=== PATIENT | female | born 1980 | race African-American/Black ===

== ENCOUNTER 2017-02-20 16:24 | Emergency (ER) | payer SELFPAY ==
[2017-02-20 16:48] VITALS: BP 116/65
[2017-02-20] MEDS ORDERED: AMOX1TAB61 PO (17:05)
--- NOTE | 2017-02-20 17:05 | PHYS DOC ---
Past Medical History Past Medical History: No Pertinent History Past Surgical History: No Surgical History Alcohol Use: Rarely Drug Use: None Adult General Chief Complaint Chief Complaint: SORE THROAT HPI HPI Patient is a 36 year old female presents emergency department stating that she' s been having sinus pressure no sore throat with a cough this been slightly productive with yellow in color. She states this is been going on for the last 4 days. She denies any fever, chills or any nausea vomiting. She does state that she has a lot of pressure in the frontal and maxillary sinus areas. Patient states she's been taking Benadryl and ibuprofen [id number] with no relief. Review of Systems Review of Systems Constitutional: Denies fever or chills [] Eyes: Denies change in visual acuity, redness, or eye pain [] HENT: Denies nasal congestion or sore throat [] Respiratory: Denies cough or shortness of breath [] Cardiovascular: No additional information not addressed in HPI [] GI: Denies abdominal pain, nausea, vomiting, bloody stools or diarrhea [] : Denies dysuria or hematuria [] Musculoskeletal: Denies back pain or joint pain [] Integument: Denies rash or skin lesions [] Neurologic: Denies headache, focal weakness or sensory changes [] Endocrine: Denies polyuria or polydipsia [] Allergies Allergies Allergies Coded Allergies Type Severity Reaction Last Updated Verified No Known Drug Allergies 03/25/14 No Physical Exam Physical Exam Constitutional: Well developed, well nourished, no acute distress, non-toxic appearance. [] HENT: Normocephalic, atraumatic, bilateral external ears normal, oropharynx moist, no oral exudates, nose normal. Bilateral tympanic membranes appear to be normal. Throat appears to have postnasal drip noted no erythematous no exudate slight redness noted. Eyes: PERRLA, EOMI, conjunctiva normal, no discharge. [] Neck: Normal range of motion, no tenderness, supple, no stridor. [] Cardiovascular:Heart rate regular rhythm, no murmur [] Lungs & Thorax: Bilateral breath sounds clear to auscultation [] Skin: Warm, dry, no erythema, no rash. [] Back: No tenderness Extremities: No tenderness, no cyanosis, no clubbing, ROM intact, no edema. [] Neurologic: Alert and oriented X 3, normal motor function, normal sensory function, no focal deficits noted. [] Psychologic: Affect normal, judgement normal, mood normal. [] Current Patient Data Vital Signs Vital Signs Date Time Temp Pulse Resp B/P (MAP) Pulse Ox O2 Delivery O2 Flow Rate FiO2 02/20/17 16:48 98.1 78 18 116/65 (82) 97 Room Air 98.1 EKG EKG [] Radiology/Procedures Radiology/Procedures [] Course & Med Decision Making Course & Med Decision Making Pertinent Labs and Imaging studies reviewed. (See chart for details) She'll be treated for sinusitis infection she'll be placed on Augmentin with recommendations for Sudafed, and Mucinex DM. Patient was encouraged drink plenty of fluids. Patient was provided with signs and symptoms to return back to emergency department. Patient will be discharged home in stable condition. Recommended following up with her primary care physician next 7-10 days. [] Dragon Disclaimer Dragon Disclaimer This electronic medical record was generated, in whole or in part, using a voice recognition dictation system. Departure Departure Impression: Primary Impression: Sinusitis Disposition: 01 HOME, SELF-CARE Condition: STABLE Referrals: UNKNOWN PCP NAME (PCP) Patient Instructions: Sinusitis, [id number] Additional Instructions: Activity as tolerated. Medication as prescribed. Sudafed as instructed by in store marketer [id number]. Mucinex DM as active by in store marketer [id number]. Drink plenty of fluids. Tylenol or ibuprofen for pain and discomfort. Follow-up to primary care physician in the next 7-10 days. Return back to emergency prior signs symptoms of become worse. Scripts Amoxicillin/Potassium Clav (AUGMENTIN 875-125 TABLET) 1 Each Tablet 1 TAB PO BID, #20 TAB Prov: JOANA PARKINSON APRN 02/20/17 JOANA PARKINSON APRN February 20, 2017 17:05
[2017-02-21 10:18] LABS: NEGATIVE OBC STREP NEG; POSITIVE OBC STREP POS
== END 2017-02-20 17:09 | disposition home or self-care (01) ==
LOC: ER 16:24
DX: J32.9 Chronic sinusitis, unspecified (principal)
CPT/HCPCS: 87070; 87880; 99283

== ENCOUNTER 2017-10-12 10:43 | Emergency (ER) | payer SELFPAY ==
[2017-10-12 11:22] LABS: URINE HCG POC HCG NEGATIVE (Negative)
[2017-10-12 12:03] LABS: BILIRUBIN,URINE NEGATIVE (NEG); GLUCOSE,URINE NEGATIVE (NEG); NITRITE,URINE NEGATIVE (NEG); PH,URINE 6.5; PROTEIN,URINE NEGATIVE (NEG-TRACE)
[2017-10-12 12:16] LABS: RBC,URINE RARE /HPF (0-2); SQUAMOUS EPITHELIAL CELL,UR MOD /LPF; WBC,URINE OCC /HPF (0-4)
[2017-10-12 12:18] LABS: BACTERIA,URINE 0 /HPF (0-FEW)
[2017-10-12] MEDS: ONDANSETRON ODT 4 MG TAB.RAPDIS. PO (12:27)
[2017-10-12 13:30] LABS: OBC FLU VALID
== END 2017-10-12 13:48 | disposition home or self-care (01) ==
LOC: ER 10:43
DX: M79.1 Myalgia (principal); R11.2 Nausea with vomiting, unspecified
CPT/HCPCS: 81001; 81025; 87804; 87804-59; 99284; Q0162

== ENCOUNTER 2019-06-03 08:29 | Emergency (ER) | payer SELFPAY ==
[~2019-06-03] VITALS: Ht 162.6 cm; Wt 101.2 kg
[~2019-06-03 08:29] MED LIST: AMOX1TAB61 PO
[2019-06-03 08:35] VITALS: BP 126/77
--- NOTE | 2019-06-03 09:18 | PHYS DOC ---
Past Medical History Past Medical History: No Pertinent History, Other Additional Past Medical Histor: left ankle fracture Past Surgical History: No Surgical History Additional Information: reports 7 cigarettes daily Alcohol Use: Rarely Drug Use: None Adult General Chief Complaint Chief Complaint: ANKLE PROBLEM [facility] HPI Patient is a 38 year old female who presents with complaining of left ankle injury. Patient states she twisted her left ankle last night and since then has had pain that getting worse with activity and bearing weight. Patient states she applied ice on the affected area and rated her pain as a moderate pain. Patient had previous ankle surgery and injuries. Patient denies other injuries and focal neurodeficit and . Review of Systems Review of Systems Constitutional: Denies fever or chills [] Eyes: Denies change in visual acuity, redness, or eye pain [] HENT: Denies nasal congestion or sore throat [] Respiratory: Denies cough or shortness of breath [] Cardiovascular: No additional information not addressed in HPI [] GI: Denies abdominal pain, nausea, vomiting, bloody stools or diarrhea [] : Denies dysuria or hematuria [] Musculoskeletal: Denies back pain, reports joint pain [] Integument: Denies rash or skin lesions [] Neurologic: Denies headache, focal weakness or sensory changes [] Endocrine: Denies polyuria or polydipsia [] All other systems were reviewed and found to be within normal limits, except as documented in this note. Allergies Allergies Allergies Coded Allergies Type Severity Reaction Last Updated Verified No Known Drug Allergies 03/25/14 No Physical Exam Physical Exam Constitutional: Well developed, well nourished, mild distress, non-toxic appearance. [] HENT: Normocephalic, atraumatic. Eyes: PERRLA, EOMI, conjunctiva normal, no discharge. [] Neck: Normal range of motion, no tenderness, supple, no stridor. [] Cardiovascular:Heart rate regular rhythm, no murmur [] Lungs & Thorax: Bilateral breath sounds clear to auscultation [] Skin: Warm, dry, no erythema, no rash. [] Back: No tenderness, no CVA tenderness. [] Extremities: Left ankle with mild edema and tenderness in lateral malleolus without deformity, normal neurovascular deficit , no cyanosis, no clubbing, ROM intact, no edema. [] Neurologic: Alert and oriented X 3, no focal deficits noted. [] Psychologic: Affect normal, judgement normal, mood normal. [] Current Patient Data Vital Signs Vital Signs Date Time Temp Pulse Resp B/P (MAP) Pulse Ox O2 Delivery O2 Flow Rate FiO2 06/03/19 08:35 97.5 78 16 126/77 (93) Room Air 98.0 97.5 EKG EKG [] Radiology/Procedures Radiology/Procedures [facility] [address] [place] [address] IMAGING REPORT Signed PATIENT: ZEESHAN ELIAS NACCOUNT: [id number] : 1980 LOCATION: ER AGE: 38 SEX: F EXAM STATUS: REG ER ORD. PHYSICIAN: NITIN CHISHOLM MD REASON: twisted left ankle yesterday, left ankle injury/pain PROCEDURE: ANKLE LEFT 3V Indication:Twisted ankle yesterday. Pain. TECHNIQUE: 3 views of the left ankle COMPARISON:None FINDINGS: Punctate bony fragment is seen inferior to the medial malleolus which is well-corticated likely old avulsion fracture. No acute fracture or dislocation. Mild ankle swelling. Small plantar calcaneal spur. IMPRESSION: As above. Electronically signed by: Desmond Abel DO (06/03/2019 9:27 AM) [facility] DICTATED and SIGNED BY: DESMOND ABEL DO DATE: 06/03/19926 Course & Med Decision Making Course & Med Decision Making Pertinent Imaging studies reviewed. (See chart for details) Evaluation of patient in ER showed 38-year-old female patient with injury to left ankle. Patient had wanted him of ankle with tenderness. X-ray did not show acute fractures. Patient did not want to have gelcast splint ER and stated she has ortho boot at home and was advised to use it. Patient advised to apply ice and elevate her leg and follow up with her primary care physician. Dragon Disclaimer Dragon Disclaimer This electronic medical record was generated, in whole or in part, using a voice recognition dictation system. Departure Departure Impression: Primary Impression: Left ankle sprain Disposition: HOME, SELF-CARE (at 0 [phone]) Condition: STABLE Referrals: UNKNOWN PCP NAME (PCP) Patient Instructions: Ankle Sprain, Acute, with Phase I Rehab-SportsMed Additional Instructions: Use your home ortho boot Follow-up with your primary care physician in 3-5 days Return to ER if not getting better Scripts Hydrocodone/Apap 5-325 (NORCO 5-325 TABLET) 1 Each Tablet 1 TAB PO PRN Q6HRS PRN for PAIN, #10 TAB 0 Refills Prov: NITIN CHISHOLM MD 06/03/19 Naproxen (NAPROSYN) 500 Mg Tablet 1 TAB PO BID for pain, #20 TAB Prov: NITIN CHISHOLM MD 06/03/19 Problem Qualifiers Primary Impression: Left ankle sprain Encounter type: initial encounter Involved ligament of ankle: unspecified ligament Qualified Codes: S93.402A - Sprain of unspecified ligament of left ankle, initial encounter NITIN CHISHOLM MD Jun 03, 2019 09:18
--- NOTE | 2019-06-03 09:30 | RAD ---
Indication:Twisted ankle yesterday. Pain. TECHNIQUE: 3 views of the left ankle COMPARISON:None FINDINGS: Punctate bony fragment is seen inferior to the medial malleolus which is well-corticated likely old avulsion fracture. No acute fracture or dislocation. Mild ankle swelling. Small plantar calcaneal spur. IMPRESSION: As above. Electronically signed by: Desmond Aviles DO (06/03/2019 9:27 AM) [facility]
[2019-06-03] MEDS ORDERED: NAPR-683 PO (09:46)
[2019-06-03] MEDS ORDERED: HYDR-3164 PO (09:46)
== END 2019-06-03 10:03 | disposition home or self-care (01) ==
LOC: ER 08:29
DX: S93.402A Sprain of unspecified ligament of left ankle, initial encounter (principal); Z87.81 Personal history of (healed) traumatic fracture; M77.32 Calcaneal spur, left foot; F17.210 Nicotine dependence, cigarettes, uncomplicated; X50.1XXA Overexertion from prolonged static or awkward postures, initial encounter; Y93.89 Activity, other specified; Y92.89 Other specified places as the place of occurrence of the external cause; Y99.8 Other external cause status
CPT/HCPCS: 73610; 99284

== ENCOUNTER 2019-10-02 | Emergency (ER) | payer SELFPAY ==
[~2019-10-02] VITALS: Ht 162.6 cm; Wt 108.9 kg
[~2019-10-02] MED LIST changes: +HYDR-3164 PO; +NAPR-683 PO
[2019-10-02 00:43] VITALS: BP 120/90
--- NOTE | 2019-10-02 01:48 | PHYS DOC ---
Past Medical History Past Medical History: No Pertinent History, Other Additional Past Medical Histor: left ankle fracture Past Surgical History: No Surgical History Alcohol Use: Rarely Drug Use: None Adult General Chief Complaint Chief Complaint: SORE THROAT HPI HPI Patient is a 39-year-old female who presents with complaint of sore throat and bilateral ear pain for the last few days. Patient denies any fever. She states that symptoms are worsening over time. She also indicates that she has had a cough and states that initially it was productive of sputum but no longer if she having any sputum production. She denies any chest pain or shortness of breath.[] Review of Systems Review of Systems Constitutional: Denies fever or chills [] HENT: Positive congestion and sore throat [] Respiratory: Positive cough without shortness of breath [] Cardiovascular: No additional information not addressed in HPI [] GI: Denies abdominal pain, nausea, vomiting or diarrhea [] Integument: Denies rash or skin lesions [] Neurologic: Denies headache, focal weakness or sensory changes [] Allergies Allergies Allergies Coded Allergies Type Severity Reaction Last Updated Verified No Known Drug Allergies 03/25/14 No Physical Exam Physical Exam Constitutional: Well developed, well nourished, no acute distress, non-toxic appearance. [] HENT: Normocephalic, atraumatic, TMs are normal-appearing, oropharynx moist, no oral exudates, nose normal. [] Eyes: PERRLA, EOMI, conjunctiva normal, no discharge. [] Neck: Normal range of motion, no tenderness, supple. [] Cardiovascular: Regular rate and rhythm[] Lungs & Thorax: Bilateral breath sounds clear to auscultation [] Skin: Warm, dry, no erythema, no rash. [] Current Patient Data Vital Signs Vital Signs Date Time Temp Pulse Resp B/P (MAP) Pulse Ox O2 Delivery O2 Flow Rate FiO2 10/02/19 00:43 98.1 98 20 120/90 (100) 99 98.1 EKG EKG [] Radiology/Procedures Radiology/Procedures [] Course & Med Decision Making Course & Med Decision Making Pertinent Labs and Imaging studies reviewed. (See chart for details) [] Dragon Disclaimer Dragon Disclaimer This electronic medical record was generated, in whole or in part, using a voice recognition dictation system. Departure Departure Impression: Primary Impression: Pharyngitis Additional Impression: Otalgia of both ears Disposition: 07 AGAINST MEDICAL ADVICE (MSE was performed and patient elected for no treatment) Condition: STABLE Referrals: UNKNOWN PCP NAME (PCP) Problem Qualifiers Primary Impression: Pharyngitis Pharyngitis/tonsillitis etiology: unspecified etiology Qualified Codes: J02.9 - Acute pharyngitis, unspecified DILAN VICKERS Jr. DO Oct 02, 2019 01:48
== END 2019-10-02 01:45 | disposition left against medical advice (07) ==
LOC: ER
DX: J02.9 Acute pharyngitis, unspecified (principal); H92.03 Otalgia, bilateral; Z98.890 Other specified postprocedural states
CPT/HCPCS: 99281